=== PATIENT | male | born 1960 ===

== ENCOUNTER 2020-07-30 11:15 | Outpatient (CLI) | payer BC, SELFPAY ==
--- OUTSIDE RECORDS SUMMARY | 2020-07-30 11:21 | XMS_ITS ---
:1960 Author Care Team Providers Name Role Phone RICHARD FIGUEROA MD Primary Care Provider [phone] Allergies Code Code Name Reaction Severity Status Onset System 5487 RxNorm Hydrochlorothiazide Rash Moderate to Active ? Severe Penicillins ? ? Active ? Notes: dust, animal dander, tree s Medications Name Status Start Date Stop Date ? ? Advair Diskus 100 mcg-50 mcg/dose powder for inhalation Active ? Not available INHALE 1 PUFF BY MOUTH TWICE A DAY IN T HE MORNING AND EVENING APPROXIMATELY 12 HOURS APART amoxicillin 500 mg capsule Completed ? 07/14 TAKE ONE CAPSULE BY MOUTH THREE TIMES DAILY FOR 5 DAYS amoxicillin 875 mg-potassium clavulanate 125 mg tablet Completed ? 07/14/2020 TAKE 1 TABLET BY MOUTH TWICE DAILY UNTIL FINISHED aspirin 81 mg tablet,delayed release Active ? Not available Take 1 tablet every day by oral route. atorvastatin 20 mg tablet Completed ? 2018 1 tab per day atorvastatin 80 mg tablet Active ? Not av ailable TAKE 1 TABLET BY MOUTH ONCE DAILY. bupropion HCl XL 150 mg 24 hr tablet, Completed ? 12/09/2019 extended release cetirizine 10 mg tablet Active ? Not avai lable chlorhexidine gluconate 0.12 % Active ? N ot available mouthwash clopidogrel 75 mg tablet Active ? Not rey ilable diazepam 10 mg tablet Active ? Not availa ble famotidine 40 mg tablet Completed ? 02/15/20 19 fluoxetine 10 mg capsule Active ? Not rey ilable TAKE 1 CAPSULE BY MOUTH EVERY DAY IN ADDITION TO 20 MG CAPSULE fluoxetine 20 mg capsule Active ? Not rey ilable TAKE 1 CAPSULE BY MOUTH ONCE DAILY fluticasone propionate 50 mcg/actuation Active ? Not available nasal spray,suspension hydrochlorothiazide 25 mg tablet Completed ? 05/21/2019 ibuprofen 600 mg tablet Completed ? 12/09/19 20 isosorbide mononitrate ER 30 mg Active ? Not available tablet,extended release 24 hr levothyroxine 150 mcg tablet Active ? Not available TAKE 1 TABLET BY MOUTH EVERY DAY. CALL DOCTOR FOR LAB WORK levothyroxine 175 mcg tablet Completed ? 1 tab per day lisinopril 10 mg tablet Active ? Not avai lable methylprednisolone 4 mg tablets in a Completed ? 02/14/2019 dose pack metoprolol succinate ER 25 mg tablet,extended release 24 hr Acti ve ? Not available TAKE 1 TABLET BY MOUTH ONCE DAILY. montelukast 10 mg tablet Active ? Not rey ilable TAKE 1 TABLET BY MOUTH EVERY DAY nitroglycerin 0.4 mg sublingual tablet Active ? Not available PLACE 1 TABLET UNDER THE TONGUE NEED ED FOR CHEST PAIN. MAY REPEAT IN 5 MINUTES PRN. CALL 911 IF PAIN DOES NOT RESOLVE. penicillin V potassium 500 mg tablet Completed ? 12/09/2019 Ventolin HFA 90 mcg/actuation aerosol Active ? Not available inhaler Problems Name Status Onset Date Source ? Hyperlipidemia Active 11/21/2017 ? Hypertensive Disorder Active 11/21/2017 ? Chest Pain Active 11/21/2017 ? Coronary Arteriosclerosis Active 07/18/2018 ? Procedures Date Name Performed by ? 05/18/2018 Cardiac Catheterization Information not available Notes: patent stents; diffuse distal disease 03/08/2018 Placement of Stent in Coronary Artery In formation not available Notes: DAVID RCA circ Results Lab Results None recorded. Past Encounters 07/14/2020 Coronary Arteriosclerosis; Hyperlipidemi a; Chest Pain; Hypertensive Disorder; Coronary Arteriosclerosis in [place] Artery Oneyda Rider MD: [address] [place] [phone], Ph. [phone] 04/22/2020 Coronary Arteriosclerosis; Chest Pain; H ypertensive Disorder; Hyperlipidemia; Coronary Arteriosclerosis in [place] Oneyda Rider MD: [address] [place] [phone], Ph. [phone] 01/01/2020 Coronary Arteriosclerosis; Chest Pain; H ypertensive Disorder; Hyperlipidemia; Coronary Arteriosclerosis in [place] Oneyda Rider MD: [address] [place] [phone], Ph. [phone] 12/09/2019 Coronary Arteriosclerosis; Hypertensive Disorder; Hyperlipidemia; Chest Pain; Coronary Arteriosclerosis in [place] Oneyda Rider MD: [address] [place] [phone], Ph. [phone] 05/21/2019 Coronary Arteriosclerosis; Hypertensive Disorder; Hyperlipidemia; Chest Pain; Coronary Arteriosclerosis in [place] Oneyda Rider MD: [address] [place] [address], Ph. [phone] 02/14/2019 Coronary Arteriosclerosis; Hyperlipidemi a; Chest Pain; Hypertensive Disorder; Coronary Arteriosclerosis in [place] Oneyda Rider MD: [address] [place] [address], Ph. [phone] Social History Tobacco Smoking Status Former Smoker Vaccine List None recorded. Plan of Care Reminders Provider Appointments None ? ? recorded. Lab None ? ? recorded. Referral None ? ? recorded. Procedures None ? ? recorded. Surgeries None ? ? recorded. Imaging None ? ? recorded. Vitals 07/14/2020 10:30AM Est patient 30 mins Height Weight BMI Blood Pressure 5 ft 6 in 232 lbs 37.4 kg/m2 134/82 mm[Hg] 04/22/2020 02:30PM Telemedicine established pt Height Weight BMI Blood Pressure 5 ft 6 in 235 lbs 37.9 kg/m2 01/01/2020 02:30PM Est patient 30 mins Height Weight BMI Blood Pressure 5 ft 6 in 233.7 lbs 37.7 kg/m2 126/86 mm[Hg] 12/09/2019 09:30AM Telemedicine established pt Height Weight BMI Blood Pressure 5 ft 6 in 232 lbs 37.4 kg/m2 05/21/2019 08:30AM Est patient 30 mins Height Weight BMI Blood Pressure 5 ft 6 in 233 lbs 37.6 kg/m2 142/84 mm[Hg] 02/14/2019 03:30PM Est patient 30 mins Height Weight BMI Blood Pressure 5 ft 6 in 232 lbs 37.4 kg/m2 108/78 mm[Hg] 11/06/2018 03:30PM Est patient 30 mins Height Weight BMI Blood Pressure 5 ft 6 in 229 lbs 37 kg/m2 132/76 mm[Hg] 07/18/2018 09:30AM Est patient 30 mins Height Weight BMI Blood Pressure 5 ft 6 in 235 lbs 37.9 kg/m2 130/82 mm[Hg] 02/26/2018 11:30AM Est patient 30 mins Height Weight BMI Blood Pressure 5 ft 6 in 233 lbs 37.6 kg/m2 126/90 mm[Hg] 11/21/2017 03:30PM NEW PATIENT Height 5 ft 6 in
--- OUTSIDE RECORDS SUMMARY | 2020-07-30 11:21 | XMS_ITS | Encounter Summary ---
:1960 Author Care Team Providers Name Role Phone Aspen Carl MD Primary Care Provider [phone] Reason for Visit Chest pain; Coronary arteriosclerosis; H ypertensive disorder; Hyperlipidemia Assessment and Plan Assessment Note Dear Wilma, I had the pleasure of seeing Moises for c ardiac evaluation today because of chest pain, dyspnea on exertion, CAD, HTN and hyperlipidemia. The patient is an exceptionally pleasant 59-year-old gentleman wh o quit smoking in the but did smok e from the age of 12. He is treated for hyperlipidemia and hypertension. He has documented coronary artery disease with stents to the RCA and circumflex in 2017. At that time he was documented to have d iffuse severe distal coronary artery disease. Heart catheterization 04/2018 showed patent stents but diffuse severe distal disease. He and I felt that at the time of his most recent presentation that his symptoms were exacerbated by emotional stress. Dr. Nieves had reviewed his coronary angiograms in the past and felt that the patient would be a candidate for cor onary artery bypass surgery if required. At his request I have previously recommended that he not work more than 50 hours a week. He did a stress test 12/2019 during which he exercised for 6 minutes on t he Luis protocol to 75% of maximum pred icted heart rate with no EKG changes. The patient underwent bilateral inguinal hernia surgery and has recovered reasonably well. He had no issues at that time. He has not been working. He reports that he finds his work emotionally very stre ssful. 3 weeks ago he was in bed and sta rted thinking about going back to work. With this he got left-sided chest pain with shooting pains down his arm and into his jaw. He reports that it lasted all ni ght. He did not seek medical attention. He had associated shallow breathing. He did not take nitroglycerin. He denies any chest pain since. He reports that night he met the decision to apply for [employer] it[employer] and feels better since. He spends hi s time reading, walking and listening to music. Exam shows a blood pressure of 134/82 mm Hg. The remainder of the exam is unremarkable. EKG today is normal and unchanged from pritesh hyman EKG. My impression at this time is that the pritesh pepe had one episode of chest pain. It was brought on by emotional stress. He does have a history of diffuse small vessel coronary artery disease. The patient w ill return for an exercise nuclear stres s test. His EKG is unremarkable. He is not getting day-to-day angina. He is on good medical therapy. He has not yet registered for the lemus virus vaccine and I have encouraged him to do this. Sincerely Oneyda Rider M.D. 1. Coronary arteriosclerosis 2. Hyperlipidemia ? high cholesterol: care ins tructions 3. Chest pain ? chest pain: care instructi ons 4. Hypertensive disorder ? elevated blood pressure: c are instructions 5. Coronary arteriosclerosis in [place] artery Discussion Note: None recorded. Plan of Care Reminders Provider Appointments Est Patient Lidya 30 Mins 01/26/2021 MD Adry 2:00PM Lab None ? ? recorded. Referral None ? ? recorded. Procedures None ? ? recorded. Surgeries None ? ? recorded. Imaging None ? ? recorded. Medications Name Start Date ? ? Advair Diskus 100 mcg-50 mcg/dose powder for inhalatio n ? INHALE 1 PUFF BY MOUTH TWICE A DAY IN T HE MORNING AND EVENING APPROXIMATELY 12 HOURS APART aspirin 81 mg tablet,delayed release ? Take 1 tablet every day by oral route. atorvastatin 80 mg tablet ? TAKE 1 TABLET BY MOUTH ONCE DAILY. cetirizine 10 mg tablet ? 1 po qd chlorhexidine gluconate 0.12 % mouthwash ? clopidogrel 75 mg tablet ? TAKE 1 TABLET BY MOUTH ONCE DAILY. diazepam 10 mg tablet ? fluoxetine 10 mg capsule ? TAKE 1 CAPSULE BY MOUTH EVERY DAY IN ADDITION TO 20 M G CAPSULE fluoxetine 20 mg capsule ? TAKE 1 CAPSULE BY MOUTH ONCE DAILY fluticasone propionate 50 mcg/actuation nasal spray,laughlin spension ? isosorbide mononitrate ER 30 mg tablet,extended releas e 24 hr ? TAKE 1 TABLET BY MOUTH ONCE DAILY. levothyroxine 150 mcg tablet ? TAKE 1 TABLET BY MOUTH EVERY DAY. CALL DOCTOR FOR LAB WORK lisinopril 10 mg tablet ? 1 TABLET BY MOUTH EVERY DAY metoprolol succinate ER 25 mg tablet,extended release 24 hr ? TAKE 1 TABLET BY MOUTH ONCE DAILY. montelukast 10 mg tablet ? TAKE 1 TABLET BY MOUTH EVERY DAY nitroglycerin 0.4 mg sublingual tablet ? PLACE 1 TABLET UNDER THE TONGUE NEED ED FOR CHEST PAIN. MAY REPEAT IN 5 MINUTES PRN. CALL 911 IF PAIN DOES NOT RESOLVE. Ventolin HFA 90 mcg/actuation aerosol inhaler ? use PRN Medications Administered None recorded. Vitals Height Weight BMI Blood Pressure 5 ft 6 in 232 lbs 37.4 kg/m2 134/82 mm[Hg] Results Lab Results None recorded. Allergies Code Code System Name Reaction Severity Onset 3446 RxNorm Hydrochlorothiazide Rash Moderate to ? Severe Penicillins ? ? ? Notes: dust, animal dander, tree s Problems Name Status Onset Date Source ? Hyperlipidemia Active 11/21/2017 ? Hypertensive Disorder Active 11/21/2017 ? Chest Pain Active 11/21/2017 ? Coronary Arteriosclerosis Active 07/18/2018 ? Procedures Date Name Performed by ? 05/18/2018 Cardiac Catheterization Information not available Notes: patent stents; diffuse distal disease 03/08/2018 Placement of Stent in Coronary Artery In formation not available Notes: DAVID RCA circ Vaccine List None recorded. Social History Tobacco Smoking Status Former Smoker Most Recent Tobacco Use Screening 07/14/2020 Tobacco-years of use 20 Family History Relation Problem Onset Age of Age Notes Father No current problems (No Information) N/A (No Notes) or disability Mother No current problems (No Information) N/A (No Notes) or disability Functional Status Unknown. Past Encounters 07/14/2020 Coronary Arteriosclerosis; Hyperlipidemi a; Chest Pain; Hypertensive Disorder; Coronary Arteriosclerosis in [place] Artery Oneyda Rider MD: [address] [place] [phone], Ph. [phone] History of Present Illness Note: <p>Had episode of chest pain, pain radiating to left arm and jaw a few weeks. Did not go to ED, did not take nitro. Reflecting, thinks he had a heart attack. Applied for disability, related to stress.</p> Review of Systems ? General Adult ROS Reported By: Patient Constitutional: Constitutional: no fever ENMT: Ears: no difficulty hearing Cardiovascular: Cardiovascular: no known hea rt murmur Respiratory: Respiratory: no coughing up blood Gastrointestinal: Gastrointestinal: not vomiti ng blood Genitourinary: Genitourinary: no hematuria Musculoskeletal: Musculoskeletal: no swelling in the extremities Integumentary: Skin: no jaundice Neurologic: Neurologic: no loss of consc iousness Psychiatric: Psych: no alcohol abuse Hematologic/Lymphatic: Hematologic/Lymphatic no bru ising Allergic/Immunologic: Allergy/Immunologic: no hive s Physical Exam ? Cardiology Exam Reported By: Patient Constitutional: General Appearance: well-nou rished, well-developed, appears stated age. Level of Distress: comf ortable Psychiatric: Mental Status: alert, normal affect. Orientation: oriented to time, place, and person Eyes: Lids and Conjunctivae: non-i njected, anicteric, no discharge, no pallor, no xanthelasma Neck: Carotid Arteries: bilateral normal upstroke, no bruits, no thrills. Jugular Veins: norm al jugular venous pressure Lungs: Respiratory Effort: unlabore d. Chest Exam: normal curvature, no thoracic deformity, no chest wall tenderness. Auscultation: clear, no wheezing, no rales, no rh onchi Cardiovascular: Precordial Exam: non displac ed focal PMI, no heaves, no precordial thrills. Rate And Rhythm: re gular. Heart Sounds: normal S1, physiologically split S2, no rub, no gallop, no click. Systolic Murmur: not heard. Diastolic Murmur: not heard. Extremities: no cyanosis, no edema Peripheral Pulses: Radial Pulse: normal Abdomen: Inspection and Palpation: no n distended Musculoskeletal: Inspection: no joint tendern ess Neurologic: Gait: normal gait Skin: Inspection and Palpation: wa rm and dry. Nails: no clubbing
[2020-07-30 12:20] VITALS: BP 94/57; PULSE 78; TEMP 36.7; O2SAT 92
[2020-07-30] MEDS: Normal Saline Flush 10 ML SYR IVP (13:16)
[2020-07-30] MEDS: Normal Saline 500 ML 30 ML IV (13:16)
[2020-07-30 13:25] VITALS: BP 101/65; PULSE 78; RESP 20; TEMP 36.4; O2SAT 93
[2020-07-30 13:38] VITALS: BP 110/65; PULSE 76; RESP 20; TEMP 36.6; O2SAT 93
[2020-07-30 14:20] VITALS: BP 118/69; PULSE 80; RESP 24; TEMP 36.8; O2SAT 91
[2020-07-30 15:03] VITALS: BP 107/65; PULSE 81; TEMP 36.9; O2SAT 92
== END 2020-07-30 11:16 | disposition home or self-care (01) ==
PROVIDERS: PCP Family Medicine; Visit Provider Family Medicine
DX: U07.1 COVID-19 (principal)
CPT/HCPCS: 96365